=== PATIENT | male | born 1940 | race Caucasian/White ===

== ENCOUNTER 2024-06-13 16:22 | Observation (INO) | payer MEDICARE, OTHER ==
[~2024-06-13] VITALS: Ht 172.7 cm; Wt 83.3 kg
--- NOTE | 2024-06-13 20:00 | NUR ---
PATIENT ARRIVED TO ROOM VIA EMS STRETCHER AT THIS TIME ACCOMPANIED BY DAUGHTER. UNIT OF BLOOD HAS FINISHED TRANSFUSING UPON ARRIVAL TO MEDICAL FLOOR. ORIENTED PATIENT TO ROOM AND INSTRUCTED STATISTICS PROFESSOR LIGHT USE AND ENSURED CALL LIGHT WITHIN REACH. BED IS LOCKED AND IN LOW POSITION. PRESENTLY STABLE ON ROOM AIR. HE IS ALERT AND ORIENTED X4. DENIES PAIN IN HIS ABDOMEN BUT IS REPORTING PAIN IN THE LEFT FOOT WHICH HE RATES 7/10. HE HAS MULTIPLE AREAS OF SCABBING ON HIS LEGS, UPON ARRIVAL HE HAD BOTH LEGS WRAPPED WITH BRANDY BANDAGES WHICH HE STATES IS FOR HIS BLE EDEMA. HE DOES FEEL SHORT OF BREATH WITH EXERTION BUT STATES THAT HIS PRESCRIBED INHALER DOES NOT GIVE HIM ANY RELIEF, NEITHER DOES ELEVATING THE HEAD OF HIS BED.
[2024-06-13] MEDS ORDERED: PROAIR HFA0.09 MG/AC IH (20:21)
[2024-06-13] MEDS ORDERED: ELIQUIS 5MG PO (20:22)
[2024-06-13] MEDS ORDERED: ASPIRIN E.C. 8181 MG PO (20:23)
[2024-06-13] MEDS ORDERED: CRANBERRY500 M3 PO (20:24)
[2024-06-13] MEDS ORDERED: DULCOLAX STOOL100 MG PO (20:25)
[2024-06-13] MEDS ORDERED: PEPCID40 MG PO (20:26)
[2024-06-13] MEDS ORDERED: MULTIPLE VITAMI1 CAP PO (20:27)
[2024-06-13] MEDS ORDERED: LASIX 20MG TABL20 MG PO (20:27)
[2024-06-13] MEDS ORDERED: EPA FISH OIL1 SGL PO (20:27)
[2024-06-13] MEDS ORDERED: K-DUR 10 MEQ T10 MEQ PO (20:28)
[2024-06-13] MEDS ORDERED: BETAPACE 80MG80 MG PO (20:30)
[2024-06-13] MEDS ORDERED: FLOMAX 0.40.4 MG/CAP PO (20:30)
[2024-06-13] MEDS ORDERED: ZOCOR 40MG40 MG PO (20:30)
[2024-06-13 21:19] VITALS: BP 160/79; PULSE 77; TEMP 97.6
[2024-06-13 21:27] VITALS: BP_SYST 160
[2024-06-13] MEDS ORDERED: Pantoprazole 40 MG in NS 10 ML IV SCH (21:36)
[2024-06-13] MEDS ORDERED: Albuterol/Ipratropium 3 MG-0.5 MG/3 ML Neb Soln IH PRN (21:45)
[2024-06-13] MEDS ORDERED: Ondansetron 4 MG/2 ML VIAL IV PRN ×2 (21:45→22:45)
[2024-06-13] MEDS ORDERED: Furosemide 40 MG/4 ML VIAL IV ONE (21:45)
[2024-06-13] MEDS ORDERED: Acetaminophen 325 MG TAB PO PRN (21:45)
[2024-06-13 21:50] LABS: MEAN CELL VOLUME 89 fl (80.0-100.0); MEAN CORPUSCULAR HGB CONC 31 g/dl (33.0-37.0); MEAN PLATELET VOLUME 9.8 fl (7.4-10.4); PLATELET COUNT 304 K/mm3 (130-400); REDCELL DISTRIBUTION WIDTH-CV 15.6 % (11.5-14.5)
--- NOTE | 2024-06-13 21:54 | NUR ---
CRITICAL VALUE CALLED FOR HEMOGLOBIN OF 6.9
[2024-06-13 21:55] LABS: HEMATOCRIT 22.3 % (42.0-52.0); HEMOGLOBIN 6.9 g/dl (13.5-18.0); MEAN CORPUSCULAR HEMOGLOBIN 28 pg (27-31)
[2024-06-13 21:57] LABS: INR 2.4 (0.8-3.0); PROTHROMBIN TIME 25.5 SECONDS (9.7-12.8)
[2024-06-13 22:08] LABS: ALBUMIN 3.1 g/dL (3.4-4.8); BILIRUBIN,TOTAL 1.1 mg/dL (0.2-1.2); CALCIUM 8.9 mg/dL (8.4-10.2); CREATININE, serum 1.71 mg/dL (0.72-1.25); POTASSIUM 4.6 mEq/L (3.5-4.5); TOTAL PROTEIN 6.2 g/dl (6.2-8.1)
[2024-06-13] MEDS ORDERED: Polyethylene Glycol 3350 119 GM BOTTLE PO SCH (23:00)
[2024-06-13] MEDS ORDERED: Bisacodyl 5 MG TAB PO SCH (23:00)
[2024-06-13 23:53] VITALS: BP 161/75; PULSE 73; TEMP 97.7
[2024-06-14] VITALS (16 sets, daily range): BP systolic 92–161; BP diastolic 56–80; PULSE 60–82; TEMP 97.4–98.2
[2024-06-14] MEDS ORDERED: Bisacodyl 5 MG TAB PO ONE (00:15)
--- NOTE | 2024-06-14 01:03 | NUR ---
BLOOD TRANSFUSION INITIATED AT 0020. PATIENT PRESENTLY TOLERATING TRANSFUSION WELL AND DENIES ANY SYMPTOMS OF TRANSFUSION REACTION.
--- NOTE | 2024-06-14 02:22 | NUR ---
TRANSFUSION COMPLETE. PATIENT RESTING IN BED, DENIES ANY SYMPTOMS OF TRANSFUSION REACTION.
--- NOTE | 2024-06-14 04:18 | NUR ---
PATIENT STATED HE FELT LIKE HE WAS GOING TO VOMIT AFTER HAVING A BOWEL MOVEMENT. PROVIDED BASIN AND PATIENT DID HAVE A SMALL AMOUNT OF VOMIT. ADMINISTERED IV ZOFRAN. PATIENT ASKED THIS RN HOW LONG HE WAS GOING TO BE HAVING BOWEL MOVEMENTS, REMINDED HIM THAT HE HAS TAKEN MIRALAX AND DULCOLAX TONIGHT IN PREPERATION FOR HIS COLONOSCOPY AND HE WILL BE PASSING STOOL UNTIL HIS COLON IS THOROUGHLY PREPPED FOR THE PROCEDURE.
[2024-06-14 05:19] LABS: BASO # 0.1 K/mm3 (0.0-0.2); BASO % 0.5 % (0.0-2.0); CALCIUM 9.9 mg/dL (8.4-10.2); CREATININE, serum 1.78 mg/dL (0.72-1.25); EOS # 0.1 K/mm3 (0.0-0.7); EOS % 0.7 % (0.0-4.0); GRAN # 7.1 K/mm3 (1.4-6.5); GRAN % 70.6 % (42.2-75.2); LYMPH # 1.6 K/mm3 (1.2-3.4); LYMPH % 15.6 % (20.0-51.0); MEAN CELL VOLUME 87 fl (80.0-100.0); MEAN CORPUSCULAR HGB CONC 32 g/dl (33.0-37.0); MONO # 1.2 K/mm3 (0.1-0.6); PLATELET COUNT 308 K/mm3 (130-400); RED BLOOD COUNT 3.01 M/mm3 (4.20-5.60); REDCELL DISTRIBUTION WIDTH-CV 15.9 % (11.5-14.5)
[2024-06-14 05:24] LABS: HEMATOCRIT 26.2 % (42.0-52.0); HEMOGLOBIN 8.4 g/dl (13.5-18.0); MEAN CORPUSCULAR HEMOGLOBIN 28 pg (27-31)
[2024-06-14] MEDS ORDERED: LR 1,000 ML IV SCH (07:00)
[2024-06-14] MEDS ORDERED: Polyethylene Glycol 3350 119 GM BOTTLE PO SCH ×2 (08:30→18:00)
[2024-06-14] MEDS ORDERED: Polyethylene Glycol 3350 17 GM PDS PO SCH (09:00)
[2024-06-14] MEDS ORDERED: Omega-3 Fatty Acid Esters (OTC) 1,000 MG CAP PO SCH (09:00)
[2024-06-14] MEDS ORDERED: NS 1,000 ML IV SCH (09:45)
--- NOTE | 2024-06-14 12:45 | NUR ---
PATIENT TAKEN TO PRE OP
[2024-06-14] MEDS ORDERED: Simvastatin 40 MG **** subs to Atorvastatin 20 MG PO SCH (21:00)
[2024-06-14] MEDS ORDERED: Atorvastatin 20 MG TAB PO SCH (21:00)
[2024-06-15] VITALS (7 sets, daily range): BP systolic 110–138; BP diastolic 52–75; PULSE 74–84; TEMP 97.5–97.9
[2024-06-15 06:09] LABS: BASO % 0.4 % (0.0-2.0); EOS # 0.2 K/mm3 (0.0-0.7); EOS % 2.6 % (0.0-4.0); GRAN # 5.3 K/mm3 (1.4-6.5); GRAN % 65.4 % (42.2-75.2); LYMPH # 1.6 K/mm3 (1.2-3.4); MEAN CELL VOLUME 90 fl (80.0-100.0); MEAN CORPUSCULAR HGB CONC 30 g/dl (33.0-37.0); MEAN PLATELET VOLUME 10.2 fl (7.4-10.4); MONO # 0.9 K/mm3 (0.1-0.6); MONO % 11.1 % (1.7-9.3); PLATELET COUNT 245 K/mm3 (130-400); RED BLOOD COUNT 2.72 M/mm3 (4.20-5.60); REDCELL DISTRIBUTION WIDTH-CV 16.7 % (11.5-14.5)
[2024-06-15 06:20] LABS: HEMATOCRIT 24.4 % (42.0-52.0); HEMOGLOBIN 7.4 g/dl (13.5-18.0); MEAN CORPUSCULAR HEMOGLOBIN 27 pg (27-31)
[2024-06-15 06:28] LABS: CALCIUM 8.4 mg/dL (8.4-10.2); CREATININE, serum 1.48 mg/dL (0.72-1.25); POTASSIUM 3.8 mEq/L (3.5-4.5)
--- NOTE | 2024-06-15 13:04 | NUR ---
ANKIT GIVEN DISCHARGE INSTRUCTIONS AND EDUCATION. PATIENT IV AND TELE REMOVED. PATIENT STATED HE WILL BE CALLING REGARDING HIS BOTTOM DENTURES HE LOST ON 06/13 OVERNIGHT. PER PATIENT HE HAD BOTTOME DENTURES IN A [place] MONDAY NIGHT AROUND 9PM WHEN HE WENT TO SLEEP. WHEN HE WOKE UP MONDAY THEY WERE GONE. THIS RN SEARCHED PATIENTS ROOM AND TRASH MONDAY MORNING, NO DENTURES FOUND. KITCHEN AND HOUSEKEEPING AWARE AND DID NOT FIND THEM, PATIENT TAKEN TO ER ENTRANCE VIA WHEELCHIAR WHERE HE LEFT IN STABLE CONDIIOTN WITH HIS DAUGHTER. PATIENT GIVEN NUMBERS FOR GEN SURGERY AND GI OFFICES
== END 2024-06-15 13:08 | disposition home or self-care (01) ==
LOC: MEDICAL 16:22
PROVIDERS: Physician Assistant; ADMIT Internal Medicine
DX: K63.5 Polyp of colon (principal); K44.9 Diaphragmatic hernia without obstruction or gangrene; K92.1 Melena; D50.0 Iron deficiency anemia secondary to blood loss (chronic); K64.2 Third degree hemorrhoids; I48.91 Unspecified atrial fibrillation; I12.9 Hypertensive chronic kidney disease with stage 1 through stage 4 chronic kidney disease, or unspecified chronic kidney disease; E78.5 Hyperlipidemia, unspecified; N18.30 Chronic kidney disease, stage 3 unspecified; N40.0 Benign prostatic hyperplasia without lower urinary tract symptoms; Z79.01 Long term (current) use of anticoagulants; Z79.82 Long term (current) use of aspirin; Z86.73 Personal history of transient ischemic attack (TIA), and cerebral infarction without residual deficits; Z95.5 Presence of coronary angioplasty implant and graft; Z85.828 Personal history of other malignant neoplasm of skin
CPT/HCPCS: G0378; G0379; J1940; J2405; J2470; J2704; J7030; P9016